=== PATIENT | female | born 1990 | race Caucasian/White ===

== ENCOUNTER → 2016-06-13 | Outpatient (CLI) | payer MEDICAID ==
--- NOTE | 2016-06-13 12:53 | US ---
EXAMINATION TYPE: US pelvic complete DATE OF EXAM: 06/13/2016 12:31 PM COMPARISON: NONE CLINICAL HISTORY: N91.2 AMENORRHEA. Patient stopped her Depo in January 2016 with no cycle since TECHNIQUE: TA pelvic ultrasound Date of LMP: unknown, was on Depo EXAM MEASUREMENTS: Uterus: 7.9 x 5.7 x 4.5cm Endometrial Stripe: 0.9cm Right Ovary: 4.1 x 2.9 x 2.6cm Left Ovary: 3.2 x 2.7 x 3.0cm TECHNOLOGIST IMPRESSION: wnl 1. Uterus: anteverted, 1.7cm probable nabothian cyst within cervix versus other etiology 2. Endometrium: wnl 3. Right Ovary: 2.6cm simple cyst seen 4. Left Ovary: small follicles seen, wnl 5. Bilateral Adnexa: wnl 6. Posterior cul-de-sac: wnl Endometrium measures up to 9 mm in thickness which is within normal limits. Elongated nabothian cyst measuring 1.8 cm on long axis is noted at level of cervix. No free fluid is seen in pelvic cul-de-sac . Both ovaries are identified. There is 2.7 cm oval anechoic lesion within right ovary felt to reflect prominent follicle or simple small ovarian cyst. Additional scattered smaller simple follicles are sc attered throughout both ovaries. IMPRESSION: Endometrium is felt within normal limits. A 2.7 cm simple appearing cyst right ovary is n oted.
== END | disposition home or self-care (01) ==
LOC: RADUSWWP 12:16
PROVIDERS: ATTEND Obstetrics & Gynecology
DX: N83.201 Unspecified ovarian cyst, right side (principal)
CPT/HCPCS: 76856

== ENCOUNTER → 2017-06-12 | Outpatient (CLI) | payer MEDICAID ==
--- NOTE | 2017-06-12 15:34 | US ---
EXAMINATION TYPE: US OB <= 14 wk fetus DATE OF EXAM: 06/12/2017 COMPARISON: NONE CLINICAL HISTORY: Z36 Confirm Dates. ; unknown LMP EXAM PERFORMED: Transabdominal (TA) EXAM MEASUREMENTS: GESTATIONAL AGE / DATING Physician Established: Not yet established Dates by LMP: LMP unknow Dates by First Scan: No previous; this is first scan Dates by Current Scan for: (12 weeks/5 days) EDC: 12/20/2017 MATERNAL ANATOMY Uterus: 15.9 x 10.3 x 6.0cm Right Ovary: 3.3 x 1.5 x 1.4cm Left Ovary: 3.7 x 1.5 x 2.0cm Post CDS / Adnexa: wnl Presence of free fluid: no Presence of corpus luteal cyst: not identified, but placenta is noted superior uterus Presence of subchorionic bleed: no GESTATION / SURVEY CRL: 6.3cm (12 weeks/5 days) Yolk Sac (normal less than 6mm): not seen Heart Rate: 163 bpm Rhythm: Normal IUP: Viable IUP Date of LMP: unknown Beta HcG (if available): unknown IMPRESSION: Single, live IUP,12 weeks/5 days, EDC: 12/20/2017, HR 163bpm.
[2017-06-12 15:35] LABS: HCT 41.8 % (34.0-46.0); HGB 13.6 gm/dL (11.4-16.0); MCH 29.6 pg (25.0-35.0); MCHC 32.4 g/dL (31.0-37.0); MCV 91.3 fL (80.0-100.0); Mean Platelet Volume 6.8; Platelet Count 228 k/uL (150-450); RBC 4.58 m/uL (3.80-5.40); RDW 13.3 % (11.5-15.5); WBC 10.2 k/uL (3.8-10.6)
[2017-06-12 15:49] LABS: Glucose 65 mg/dL (74-99)
[2017-06-12 20:54] LABS: HIV AB P24 Non-Reactive (Non-Reactive); HIV P24 AG Non-Reactive (Non-Reactive)
== END | disposition home or self-care (01) ==
LOC: RADUSWWP 14:48
PROVIDERS: ATTEND Obstetrics & Gynecology
DX: Z36.9 Encounter for antenatal screening, unspecified (principal); Z3A.12 12 weeks gestation of pregnancy
CPT/HCPCS: 36415; 76801; 82565; 82947; 85027; 86762; 86780; 86850; 86900; 86901; 87340; 87390

== ENCOUNTER → 2017-07-26 | Outpatient (CLI) | payer MEDICAID ==
--- NOTE | 2017-07-26 12:14 | US ---
EXAMINATION TYPE: US OB anatomy transabd DATE OF EXAM: 07/26/2017 COMPARISON: HISTORY: O36.62X0 LARGE FOR DATES Anatomy TECHNIQUE: Transabdominal (TA) EXAM MEASUREMENTS: GESTATIONAL AGE / DATING Dates by First Scan: (19 weeks/0 days) EDC: 12/20/2017 Dates by Current Scan for: (18 weeks/4 days) EDC: 12/23/2017 SURVEY IUP: Single PLACENTA: Anterior PREVIA: No previa SHE: 12.0 cm Normal CERVICAL LENGTH (transabdominal: norm > 3.0cm): 3.8 cm BIOMETRY PRESENTATION: Vertex LIE: Longitudinal BPD: 4.2 cm 18 weeks / 5 days HC: 15.6 cm 18 weeks / 4 days AC: 12.9 cm 18 weeks / 3 days FL: 2.9 cm 19 weeks / 0 days ESTIMATED WEIGHT IN GRAMS: 253 grams ESTIMATED WEIGHT IN LBS/OZ: 0 lbs. 9 oz. WEIGHT PERCENTAGE BASED ON ESTABLISHED DATE: 28.9 % HC/AC: 1.2 Normal FL/AC: 22.6 HEART RATE: 143 bpm RHYTHM: Normal ANATOMY SEEN (within normal limits): * Lateral Vent (< 1 cm) 0.4 cm * Cisterna Magna (< 1.1 cm) 0.4 cm * Nuchal Fold (< 0.6 cm) 0.3 cm * Cerebellum (varies with age) 1.9 cm Choroid Plexus (bilateral) Midline Falx Cavus Septi Pellucidi Four Chamber Heart Outflow tracts: LVOT/RVOT Stomach Situs Nose / Lips Diaphragm Kidneys (bilateral) Bladder Cord Insert Three Vessel Cord Longitudinal Spine Transverse Spine Arms (bilateral) Legs (bilateral) ANATOMY SEEN (does not appear within normal limits): ANATOMY NOT SEEN: IMPRESSION: Live single IUP measuring 18 weeks 4 days. Anechoic area seen at tip of placenta, adjacent to chorio n = 2.8 x 1.8 x 0.7 cm
== END ==
LOC: RADUSWWP 10:55
PROVIDERS: ATTEND Obstetrics & Gynecology
DX: O36.62X0 Maternal care for excessive fetal growth, second trimester, not applicable or unspecified (principal)
CPT/HCPCS: 76811

== ENCOUNTER → 2017-09-04 | Outpatient (CLI) | payer MEDICAID ==
[2017-09-04 09:00] LABS: HGB 11.3 gm/dL (11.4-16.0); MCH 29.5 pg (25.0-35.0); MCHC 32.3 g/dL (31.0-37.0); MCV 91.3 fL (80.0-100.0); Mean Platelet Volume 7.5; Platelet Count 213 k/uL (150-450); RBC 3.83 m/uL (3.80-5.40); RDW 13.5 % (11.5-15.5)
== END | disposition home or self-care (01) ==
LOC: LABWHC1 07:51
PROVIDERS: ATTEND Obstetrics & Gynecology
DX: Z34.82 Encounter for supervision of other normal pregnancy, second trimester (principal); Z3A.00 Weeks of gestation of pregnancy not specified
CPT/HCPCS: 36415; 82950; 85027

== ENCOUNTER → 2017-11-16 | Outpatient (CLI) | payer MEDICAID ==
--- NOTE | 2017-11-16 12:48 | US ---
EXAMINATION TYPE: US OB anatomy transabd DATE OF EXAM: 11/16/2017 COMPARISON: NONE HISTORY: O36.63X0 Large for dates 3rd trimester Large dates. TECHNIQUE: Transabdominal (TA) EXAM MEASUREMENTS: GESTATIONAL AGE / DATING Physician Established: (35 weeks/1 days) EDC: 12/20/2017 Dates by LMP: (35 weeks/1 days) EDC: 12/20/2017 Dates by First Scan: (18 weeks/4 days) EDC: 12/23/2018 Dates by Current Scan for: (33 weeks/5 days) EDC: 12/30/2017 SURVEY IUP: Single PLACENTA: Anterior PREVIA: No previa SHE: 12.9 cm Normal CERVICAL LENGTH (transabdominal: norm > 3.0cm): 3.1 cm BIOMETRY PRESENTATION: Vertex BPD: 8.2 cm 33 weeks / 0 days HC: 31.15 cm 34 weeks / 6 days AC: 31.32 cm 35 weeks / 2 days FL: 6.51 cm 33 weeks / 4 days ESTIMATED WEIGHT IN GRAMS: 2452 grams ESTIMATED WEIGHT IN LBS/OZ: 5 lbs. 6 oz. WEIGHT PERCENTAGE BASED ON ESTABLISHED DATE: 30 % HC/AC: 0.99cm Normal FL/AC: 79.38 cm Normal HEART RATE: 142 bpm RHYTHM: Normal ANATOMY SEEN (within normal limits): * Lateral Vent (< 1 cm) 0.7 cm * Cisterna Magna (< 1.1 cm) 0.5 cm * Cerebellum (varies with age) 4.8 cm Choroid Plexus (bilateral) Midline Falx Cavus Septi Pellucidi Four Chamber Heart Stomach Situs Nose / Lips Diaphragm Kidneys (bilateral) Bladder Cord Insert Three Vessel Cord Longitudinal Spine Transverse Spine ) ANATOMY NOT SEEN: Not seen due to advanced gestational age. * Nuchal Fold (< 0.6 cm) cm Arms (bilateral) Legs (bilateral Outflow tracts: LVOT/RVOT IMPRESSION: Single live intrauterine with a calculated sonographic age of 33 weeks and 5 days and estim ated date of delivery of 12/30/2017, discordant with menstrual age likely due to late dates. Some of t he above detailed anatomy as discussed is not identified due to advanced gestational age. Weight perc entage based on established dates is 30% with an estimated weight of 5 pounds and 6 ounces currently.
== END | disposition home or self-care (01) ==
LOC: RADUSWWP 10:49
PROVIDERS: ATTEND Obstetrics & Gynecology
DX: O36.63X0 Maternal care for excessive fetal growth, third trimester, not applicable or unspecified (principal); Z3A.33 33 weeks gestation of pregnancy
CPT/HCPCS: 76811

== ENCOUNTER 2017-12-13 05:55 | Inpatient (IN) | payer MEDICAID ==
--- NOTE | 2017-12-12 18:38 | P.HPOB ---
History of Present Illness H&P Date: 12/12/17 Chief Complaint: Induction of labor This is a 27-year-old female 4 para 1 with an estimated date of confinement of 12/20/2017, estimated gestational age of 39-0/7 weeks, who presents for induction of labor. She admits to good movement. She has been feeling pressure but no regular contractions. She is complaining of significant heartburn that causes her to vomit most of the night. She is requesting elective induction. Her course has been essentially uncomplicated other than heartburn issues. labs: GC/chlamydia-negative Hepatitis B surface antigen-negative on reactive Rubella-immune RPR-nonreactive HIV-nonreactive Random glucose-65 Hemoglobin-13.6 Blood type-A+ Antibody screen-negative Obstetrical ultrasound-normal anatomy One hour Glucola-100 Group B streptococcus-negative Obstetrical history: . History of 1 vaginal delivery at term history of 2 miscarriages. Gynecologic history: No history of sexually transmitted diseases. Social history: She is . 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 [employer] Review of Systems Constitutional: Denies chills, Denies fever Eyes: denies blurred vision, denies pain Ears, nose, mouth and throat: Denies headache, Denies sore throat Cardiovascular: Denies chest pain, Denies shortness of breath Respiratory: Denies cough Gastrointestinal: Reports heartburn, Reports vomiting Genitourinary: Reports pelvic pain, Reports Musculoskeletal: Reports low back pain Integumentary: Denies pruritus, Denies rash Neurological: Denies numbness, Denies weakness Psychiatric: Denies anxiety, Denies depression Past Medical History Additional Past Medical History / Comment(s): Ehler Danlos syndrome Additional Past Surgical History / Comment(s): D&C 2 Past Psychological History: No Psychological Hx Reported Smoking Status: Never smoker Past Alcohol Use History: None Reported Past Drug Use History: None Reported - Past Family History Sister(s) Additional Family Medical History / Comment(s): Endometriosis Medications and Allergies Home Medications Medication Instructions Recorded Confirmed Type Ecn-Dnzz-Zmcsk Acid 1 cap PO DAILY 12/12/17 12/12/17 History [-U Capsule (formulary)] Allergies Allergy/AdvReac Type Severity Reaction Status Date / Time No Known Allergies Allergy Verified 12/12/17 18:35 Exam Osteopathic Statement: *. No significant issues noted on an osteopathic structural exam other than those noted in the History and Physical/Consult. HEENT: Within normal limits Heart: Regular rate and rhythm Lungs: Clear to auscultation bilaterally Abdomen: Cervix: 3 cm/60%/-2 station heart tones: 150s by Doppler Extremities: Negative Eugenia Assessment and Plan (1) 39 weeks gestation of Status: Acute Code(s): Z3A.39 - 39 WEEKS GESTATION OF SNOMED Code( s): 36790152 Plan: Proceed with oxytocin induction of labor. Expectant management. Epidural anesthesia if desired.
[2017-12-13] MEDS ORDERED: LIDOCAINE 1% 20 ML VIAL (10MG/ML) FOR IV START INTRADERMA PRN (06:20)
[2017-12-13] MEDS ORDERED: CARBOPROST TROMETHAMINE 250 MCG/ML 1 ML AMP IM PRN (06:20)
[2017-12-13] MEDS ORDERED: OXYTOCIN 10 UNIT/ML 1 ML VIAL IM PRN (06:20)
[2017-12-13] MEDS ORDERED: OXYTOCIN 20 UNITS/1000 ML NS 1,000 ML IV SCH ×2 (06:20→14:43)
[2017-12-13] MEDS ORDERED: LIDOCAINE 1% (PF) 10 MG/ML (30 ML SDV) SQ PRN (06:20)
[2017-12-13] MEDS ORDERED: TERBUTALINE 1 MG/ML VIAL SQ PRN (06:20)
[2017-12-13] MEDS ORDERED: METHYLERGONOVINE 0.2 MG/ML 1 ML AMP IM PRN (06:20)
[2017-12-13] MEDS: LACTATED RINGERS 1,000 ML IV SCH ×3 (06:41→11:59)
[2017-12-13 06:51] LABS: Basophils % (A) 0 %; Eosinophils # (A) 0.1 k/uL (0-0.7); Eosinophils % (A) 1 %; HCT 35.7 % (34.0-46.0); HGB 11.4 gm/dL (11.4-16.0); Hypochromasia Slight; Lymphocytes # (A) 1.9 k/uL (1.0-4.8); Lymphocytes % (A) 21 %; MCH 26.4 pg (25.0-35.0); MCHC 31.9 g/dL (31.0-37.0); MCV 82.8 fL (80.0-100.0); Mean Platelet Volume 7.7; Monocytes # (A) 0.4 k/uL (0-1.0); Monocytes % (A) 5 %; Neutrophils # (A) 6.8 k/uL (1.3-7.7); Neutrophils % (A) 72 %; Platelet Count 268 k/uL (150-450); RBC 4.32 m/uL (3.80-5.40); WBC 9.4 k/uL (3.8-10.6)
[2017-12-13 06:56] VITALS: BMI 26.4
[2017-12-13] MEDS ORDERED: ROPIVACAINE 5MG/ML 20ML VIAL ONE (11:59)
[2017-12-13] MEDS ORDERED: SODIUM CHLORIDE 0.9% 100 ML BAG ONE (11:59)
[2017-12-13] MEDS ORDERED: fentaNYL (PF) 50 MCG/ML 5 ML AMP ONE (11:59)
[2017-12-13] MEDS ORDERED: diphenhydrAMINE 25 MG CAP PO PRN (14:43)
[2017-12-13] MEDS ORDERED: SIMETHICONE 80 MG CHEWABLE PO PRN (14:43)
[2017-12-13] MEDS ORDERED: HYDROCORTISONE 2.5% RECTAL CREAM 30 GM TUBE RECTAL PRN (14:43)
[2017-12-13] MEDS ORDERED: ZOLPIDEM 5 MG TAB PO PRN (14:43)
[2017-12-13] MEDS ORDERED: LANOLIN CREAM 5 GM TUBE TOPICAL PRN (14:43)
[2017-12-13] MEDS ORDERED: diphenhydrAMINE 50 MG CAP PO PRN (14:43)
[2017-12-13] MEDS ORDERED: diphenhydrAMINE 50 MG/ML 1 ML VIAL IVP PRN ×2 (14:43)
[2017-12-13] MEDS ORDERED: BENZOCAINE/MENTHOL SPRAY 1 GM/SPRAY AEROSOL TOPICAL PRN (14:43)
[2017-12-13] MEDS ORDERED: ACETAMINOPHEN TAB 325 MG TAB PO PRN (14:43)
[2017-12-13] MEDS ORDERED: WITCH HAZEL 1 EACH MED..PAD TOPICAL PRN (14:43)
--- NOTE | 2017-12-13 16:48 | P.PROBDLV ---
Vaginal Delivery Note - . Vaginal Delivery Note: The patient progressed to complete dilation after oxytocin induction of labor and artificial rupture membranes with clear fluid noted. She did receive epidural anesthesia. Once reaching complete, she began pushing. 's head came to a crown. With one further push, the infant's head delivered across the perineum in a right occiput anterior lie. After the anterior shoulder was delivered, nose and mouth were bulb suctioned at the perineum. With one further push, the remainder the was easily delivered and placed on mother 's abdomen. Cord was clamped and cut and was taken to warmer for evaluation. A viable female was noted with scores of 9 at 1 minute and 9 at 5 minutes area weight was 7 lbs. 3 oz. Placenta delivered shortly thereafter, intact, with three-vessel cord. Uterus contracted well after oxytocin was given and uterine massage was carried out. Inspection of the perineum revealed a small second-degree perineal laceration towards the left side of the perineum. This area was anesthetized with 1% lidocaine and then sutured with 3-0 Vicryl suture in a running locked fashion. Estimated blood loss is approximately 150 mL's. Both mother and infant are in stable condition.
[2017-12-13] MEDS: IBUPROFEN 600 MG TAB PO PRN (19:36)
[2017-12-13] MEDS: SENNOSIDES-DOCUSATE SODIUM 1 EACH TAB PO SCH (23:10)
[2017-12-14] MEDS: IBUPROFEN 600 MG TAB PO PRN ×2 (06:09→11:38)
[2017-12-14 07:18] LABS: Basophils % (A) 0 %; Eosinophils # (A) 0.1 k/uL (0-0.7); Eosinophils % (A) 1 %; HGB 10.8 gm/dL (11.4-16.0); Hypochromasia Moderate; Monocytes # (A) 0.6 k/uL (0-1.0); Monocytes % (A) 5 %; Neutrophils % (A) 78 %
[2017-12-14 08:30] VITALS: BP 130/74; PULSE 73; RESP 15; TEMP 98.2
--- NOTE | 2017-12-14 08:46 | P.DS ---
Providers Date of admission: 12/13/17 05:55 Expected date of discharge: 12/14/17 Attending physician: Hamida Mccall Primary care physician: Stated None - Discharge Diagnosis(es) (1) 39 weeks gestation of Current Visit: No Status: Acute Hospital Course: This is a 27-year-old female 4 para 1 who presented for induction of labor at 39-0/7 weeks. She underwent oxytocin induction of labor and delivered vaginally a viable female on 12/13/2017 with scores of 9 at 1 minute and 9 at 5 minutes and weight of 7 lbs. 3 oz. Her course has been uncomplicated. She is breast-feeding. Lochia is decreasing. Pain is controlled with ibuprofen. Vital signs are stable. Abdomen is soft with fundus firm and nontender. Extremities show negative Homans. Impression is status post vaginal delivery day #1. Plan is to discharge home today. Routine instructions are given. She is advised to call the office if she has any further questions or concerns prior to her appointment time. She is advised to follow up in the office in 6 weeks. She will be given a prescription for ibuprofen and a breast pump. Procedures: Oxytocin induction of labor Spontaneous vaginal delivery of a viable female on 12/13/2017 Patient Condition at Discharge: Stable Plan - Discharge Summary New Discharge Prescriptions: New Ibuprofen [Motrin] 600 mg PO Q6HR PRN #60 tab PRN Reason: Mild Pain Or Fever >= 100.5 Continue Gcy-Ucnw-Ypunk Acid [-U Capsule (formulary)] 1 cap PO DAILY Discharge Medication List Zjl-Mgro-Qcirw Acid [-U Capsule (formulary)] 1 cap PO DAILY 12/22 [History] Ibuprofen [Motrin] 600 mg PO Q6HR PRN #60 tab 12/14/17 [Rx] Follow up Appointment(s)/Referral(s): Hamida Mccall DO [Doctor of Osteopathic Medicine] - 1 Week Activity/Diet/Wound Care/Special Instructions: Instructions 1. Do not begin any exercise program for 3 weeks. 2. Do not resume sexual relations for 3 weeks or longer if uncomfortable. 3. You may take tub baths or showers at any time. 4. You may use tampons if desired after 3 weeks. 5. Keep the area of episiotomy (stitches) clean and dry. 6. If you are not nursing, wear a good fitting, supportive bra during the day and limit fluid intake for at least 1 week to prevent breast engorgement. 7. Call the office, [phone], within the next week to make appointment for your 6 week checkup if it has not already been made. 8. Report any of the following occurrences to the doctor promptly: a. Heavy, excessive bleeding b. Chills, fever c. Burning or frequency of urination d. Pain or redness and breasts if nursing e. Increasing pain or swelling in episiotomy (stitches). In addition to the above instructions, the following additional should be followed: 1. No heavy lifting or straining (exercising) until after 6 week checkup. 2. Keep abdominal incision clean and dry: You may wear a dressing if more comfortable. 3. Make office appointment for 10 days after going home or as instructed by her doctor. Discharge Disposition: HOME SELF-CARE
[2017-12-14] MEDS: SENNOSIDES-DOCUSATE SODIUM 1 EACH TAB PO SCH (10:24)
[2017-12-14 10:28] LABS: HCT 34.7 % (34.0-46.0); Lymphocytes # (A) 1.7 k/uL (1.0-4.8); Lymphocytes % (A) 15 %; MCH 26.4 pg (25.0-35.0); MCHC 31.2 g/dL (31.0-37.0); MCV 84.6 fL (80.0-100.0); Mean Platelet Volume 8.3; Neutrophils # (A) 8.8 k/uL (1.3-7.7); Platelet Count 215 k/uL (150-450); WBC 11.4 k/uL (3.8-10.6)
== END 2017-12-14 15:38 | disposition home or self-care (01) | DRG 775 ==
LOC: 4FBP 05:55
PROVIDERS: ADMIT Obstetrics & Gynecology; ATTEND Obstetrics & Gynecology
PROC: 10E0XZZ Delivery of Products of Conception, External Approach (ICD-10-PCS; principal; 2017-12-13)
PROC: 0KQM0ZZ Repair Perineum Muscle, Open Approach (ICD-10-PCS; 2017-12-13)
PROC: 3E033VJ Introduction of Other Hormone into Peripheral Vein, Percutaneous Approach (ICD-10-PCS; 2017-12-13)
PROC: 10907ZC Drainage of Amniotic Fluid, Therapeutic from Products of Conception, Via Natural or Artificial Opening (ICD-10-PCS; 2017-12-13)
PROC: 00HU33Z Insertion of Infusion Device into Spinal Canal, Percutaneous Approach (ICD-10-PCS; 2017-12-13)
PROC: 3E0R3BZ Introduction of Anesthetic Agent into Spinal Canal, Percutaneous Approach (ICD-10-PCS; 2017-12-13)
DX: O70.1 Second degree perineal laceration during delivery (principal); Z37.0 Single live birth; Q79.6 Ehlers-Danlos syndromes; O99.62 Diseases of the digestive system complicating childbirth; R11.10 Vomiting, unspecified; R12 Heartburn; Z3A.39 39 weeks gestation of pregnancy; Z79.899 Other long term (current) drug therapy; Z80.49 Family history of malignant neoplasm of other genital organs
CPT/HCPCS: 85025

== ENCOUNTER → 2018-09-13 | Outpatient (CLI) | payer MEDICAID ==
[2018-09-13 12:21] LABS: Basophils % (A) 0 %; Eosinophils # (A) 0.1 k/uL (0-0.7); Eosinophils % (A) 1 %; HCT 39.8 % (34.0-46.0); HGB 12.9 gm/dL (11.4-16.0); Lymphocytes # (A) 2.1 k/uL (1.0-4.8); Lymphocytes % (A) 30 %; MCH 28.7 pg (25.0-35.0); MCHC 32.5 g/dL (31.0-37.0); MCV 88.4 fL (80.0-100.0); Mean Platelet Volume 7.5; Monocytes # (A) 0.3 k/uL (0-1.0); Monocytes % (A) 4 %; Neutrophils # (A) 4.4 k/uL (1.3-7.7); Neutrophils % (A) 63 %; Platelet Count 239 k/uL (150-450); RDW 13.2 % (11.5-15.5)
== END | disposition home or self-care (01) ==
LOC: LABPAT 11:23
PROVIDERS: ATTEND Obstetrics & Gynecology
DX: Z01.812 Encounter for preprocedural laboratory examination (principal)
CPT/HCPCS: 36415; 85025

== ENCOUNTER 2018-09-20 06:29 | Day surgery (SDC) | payer MEDICAID ==
[2018-09-17 11:45] VITALS: BMI 22.4
--- NOTE | 2018-09-19 20:55 | P.HPOB ---
History of Present Illness H&P Date: 09/19/18 Chief Complaint: Family planning This is a 28-year-old female 4 para 2 who presents for laparoscopic bilateral tubal ligation via fulguration for family planning. She is currently using control pills. Obstetrical history: . History of 2 vaginal deliveries. History of 1 miscarriage and 1 termination. Gynecologic history: No history of sexual transmitted diseases. 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 She is . Review of Systems Constitutional: Denies chills, Denies fever Eyes: denies blurred vision, denies pain Ears, nose, mouth and throat: Denies headache, Denies sore throat Cardiovascular: Denies chest pain, Denies shortness of breath Respiratory: Denies cough Gastrointestinal: Denies abdominal pain, Denies diarrhea, Denies nausea, Denies vomiting Genitourinary: Denies dysuria, Denies hematuria Menstruation: Reports menses 1-7 days Musculoskeletal: Denies myalgias Integumentary: Denies pruritus, Denies rash Neurological: Denies numbness, Denies weakness Past Medical History Additional Past Medical History / Comment(s): Ehler Danlos Syndrome. History of Any Multi-Drug Resistant Organisms: MRSA Date of last positivie culture/infection: 2012 left elbow MDRO Source:: staph Additional Past Surgical History / Comment(s): D&C X2. Past Anesthesia/Blood Transfusion Reactions: No Reported Reaction Past Psychological History: No Psychological Hx Reported Smoking Status: Never smoker Past Alcohol Use History: None Reported Past Drug Use History: None Reported - Past Family History Sister(s) Additional Family Medical History / Comment(s): Endometriosis Medications and Allergies Home Medications Medication Instructions Recorded Confirmed Type No Known Home Medications 09/17/18 09/17/18 History Allergies Allergy/AdvReac Type Severity Reaction Status Date / Time No Known Allergies Allergy Verified 09/17/18 11:37 Exam Osteopathic Statement: *. No significant issues noted on an osteopathic structural exam other than those noted in the History and Physical/Consult. HEENT: Within normal limits Heart: Regular rate and rhythm Lungs: Clear to auscultation bilaterally Abdomen: Soft, nontender Pelvic exam: Uterus is small, anteverted, nontender, with no adnexal masses or tenderness. Extremities: Negative Homans Assessment and Plan (1) Family planning Status: Acute Code(s): Z30.09 - ENCOUNTER FOR OTH GENERAL CNSL AND ADVICE ON CONTRACEPTION SNOMED Code(s): 600496019 Plan: Proceed with laparoscopic bilateral tubal ligation via fulguration. I have discussed the risks, benefits, and alternative therapies for the above- mentioned procedure and for both sedation/anesthesia as well as necessary blood products administration, if indicated, as they pertain to this patient. The patient has indicated her understanding and acceptance of the risks and procedures discussed.
[~2018-09-20 06:29] MED LIST: DEXAMETHASONE SOD PHOSPHATE 10 MG/ML 1 ML VIAL IV ONE; HYDROmorphone 0.5 MG/0.5 ML SYRINGE IVP PRN; LACTATED RINGERS 1,000 ML IV SCH; LIDOCAINE 1% 20 ML VIAL (10MG/ML) FOR IV START INTRADERMA PRN; MIDAZOLAM 2 MG/2 ML VIAL IV PRN; ONDANSETRON 4 MG/2 ML VIAL IVP ONE; Pre Op ABX Message 1 EACH MISC MISCELLANE ONE; fentaNYL (PF) 50 MCG/ML 2 ML AMP IV PRN
[2018-09-20 06:56] VITALS: RESP 16
[2018-09-20] MEDS ORDERED: MIDAZOLAM 2 MG/2 ML VIAL ONE (07:28)
[2018-09-20] MEDS ORDERED: KETOROLAC 30 MG/ML 1 ML VIAL ONE (07:28)
[2018-09-20] MEDS ORDERED: LIDOCAINE 1% INJ 10MG/ML (20 ML MDV) ONE (07:28)
[2018-09-20] MEDS ORDERED: PROPOFOL 10 MG/ML 20 ML VIAL IV ONE (07:28)
[2018-09-20] MEDS ORDERED: SUCCINYLCHOLINE CHLORIDE 100 MG/5 ML SYR IV ONE (07:28)
[2018-09-20] MEDS ORDERED: fentaNYL (PF) 50 MCG/ML 2 ML AMP ONE (07:28)
[2018-09-20] MEDS ORDERED: BUPIVACAINE (PF) 0.25% 30 ML VIAL SQ ONE (07:57)
--- NOTE | 2018-09-20 08:23 | P.OP ---
Date of Procedure: 09/20/18 Preoperative Diagnosis: Family planning Postoperative Diagnosis: Same Procedure(s) Performed: Laparoscopic bilateral tubal ligation via fulgaration Anesthesia: COLIN Surgeon: Hamida Mccall Estimated Blood Loss (ml): 10 Pathology: none sent Condition: stable Disposition: same day Indications for Procedure: This is a 28-year-old female 4 para 2 who presents for laparoscopic bilateral tubal ligation via fulguration for family planning. She is currently using control pills. Operative Findings: uterus is retroverted and sounded to 9 cm. No adnexal masses are palpated. Description of Procedure: The patient is taken to the operating room where she is placed in the dorsal lithotomy position. She is prepped and draped in the normal sterile fashion. Examination is performed under anesthesia. Uterus is found to be in a retroverted position. No adnexal masses were palpated. Next a bivalve speculum was placed in the patient's vagina. A single-tooth tenaculum was used to grasp the anterior lip of the cervix. The uterus was sounded to 9 cm. The kroner uterine manipulator was then inserted through the cervix and the balloon was inflated. The single-tooth tenaculum is removed speculum was removed gloves were changed and attention was turned to the abdomen. The infraumbilical fold was grasped in transverse fashion with 2 Allis clamps. A small transverse incision was made with a scalpel. A hemostat was used to carry the incision down to the underlying layer of fascia. A towel clip was placed above the umbilicus for retraction. A 10 mm disposable bladeless trocar was then inserted into the peritoneal cavity under direct visualization. Once inside, pneumoperitoneum was achieved with CO2 gas. The insert was removed and the camera was placed. Intraperitoneal placement was confirmed. No bleeding was noted. Next the patient was placed in Trendelenburg position. A small stab incision was made suprapubically and a 5 mm disposable bladeless trocar was inserted into the peritoneal cavity under direct visualization. Once inside pelvic contents were inspected. Next a bipolar Kleppinger instrument was placed through the inferior trocar and the midportion of each tube was brought away f rom other structures and completely fulgurated on approximate 2-3 cm segment of each tube. Excellent hemostasis was noted. A picture was taken. Pneumoperitoneum was released after the inferior trocar was removed under direct visualization. The upper trocar was then removed. The fascial incision was closed with 0 Vicryl suture in interrupted [id number] stitch. The skin incisions were then closed with 4-0 Vicryl suture in a subcuticular fashion. skin incisions were then injected with quarter percent Marcaine. Approximately 6 mL were used.Next the kroner uterine manipulator was removed. Minimal bleeding was noted. All sponge and needle counts are correct. The patient is then taken to recovery room in stable condition.
[2018-09-20 08:27] VITALS: TEMP 97.2
[2018-09-20] MEDS ORDERED: LACTATED RINGERS 1,000 ML IV ONE (08:38)
[2018-09-20] MEDS ORDERED: HYDROcodone/APAP 5-325MG 1 EACH TAB PO ONE (09:15)
[2018-09-20 09:24] VITALS: BP 106/70; PULSE 68
== END 2018-09-20 09:50 | disposition home or self-care (01) ==
LOC: OR 06:29
PROVIDERS: ATTEND Obstetrics & Gynecology
DX: Z30.2 Encounter for sterilization (principal); N85.4 Malposition of uterus; Q79.6 Ehlers-Danlos syndromes; Z86.14 Personal history of Methicillin resistant Staphylococcus aureus infection
CPT/HCPCS: 81025; 58670; J2250; J1100; J2405; J2001; J3010; J1885; J0330; J2704

== ENCOUNTER → 2020-02-24 | Outpatient (CLI) | payer MEDICAID | END | disposition home or self-care (01) | LOC: LABWHC1 11:08 | PROVIDERS: ATTEND Nurse Practitioner | DX: Z20.828 Contact with and (suspected) exposure to other viral communicable diseases (principal) | CPT/HCPCS: U0003; C9803 ==

== ENCOUNTER → 2022-01-23 | Outpatient (CLI) | payer MEDICAID ==
--- NOTE | 2022-01-23 19:33 | US ---
EXAMINATION TYPE: US pelvic complete DATE OF EXAM: 01/23/2022 COMPARISON: NONE CLINICAL HISTORY: N89.9 VAGINAL CYST. Patient states she has a vaginal cyst TECHNIQUE: . Transabdominal sonographic images of the pelvis were acquired. Date of LMP: 01/20/2022 EXAM MEASUREMENTS: Uterus: 8.4 x 4.5 x 5.5 cm Endometrial Stripe: 0.9 cm Right Ovary: 3.0 x 1.5 x 2.2 cm Left Ovary: 2.8 x 1.5 x 2.0 cm 1. Uterus: retroverted 2. Endometrium: wnl 3. Right Ovary: wnl 4. Left Ovary: wnl 5. Bilateral Adnexa: wnl 6. Posterior cul-de-sac: wnl 3.0 x 1.6 x 1.9 cm cystic area seen in superior portion of vagina - appears to be same area seen on previous ultrasound in 2017 IMPRESSION: 1. No evidence for acute process. 2. Endometrium within normal limits for thickness. 3. Cystic area in this superior aspect of the vagina favored represent Jake duct cyst.
== END | disposition home or self-care (01) ==
LOC: RADUSWWP 15:32
PROVIDERS: ATTEND Obstetrics & Gynecology
DX: N89.8 Other specified noninflammatory disorders of vagina (principal)
CPT/HCPCS: 76856